=== PATIENT | male | born 1980 | race Caucasian/White ===

== ENCOUNTER 2021-09-11 09:04 | Outpatient (CLI) | payer OTHER, SELFPAY ==
[2021-09-11 09:55] LABS: Hematocrit 45.7 % (40-54); Mean Corpuscular Hgb 30.5 pg (27.0-32.0); Mean Platelet Vol. 10.7 fl (6.2-12.0); Platelet Count 292 K/mm3 (150-450); RBC Distribution Width CV 13.1 % (11.6-14.6); Red Blood Count 5.25 M/mm3 (4.6-6.2); White Blood Count 6.4 K/mm3 (4.4-11.0)
[2021-09-11 10:38] LABS: ALB/GLOB Ratio 1.2 RATIO (0.9-2.4); AST(SGOT) 34 U/L (15-37); Alanine Aminotransfer ALT/SGPT 79 U/L (16-61); Albumin, Serum 4.2 g/dL (3.2-5.0); Alkaline Phosphatase 72 U/L (45-117); Anion Gap 7 (5-15); BUN 11 mg/dL (7-18); BUN/Creat Ratio 11.4 RATIO (10-20); Calcium,Total 10.2 mg/dL (8.5-10.1); Chloride 103 mmol/L (98-107); Cholesterol 334 mg/dL (200); Creatinine, Serum 0.96 mg/dL (0.70-1.30); EST Glomerular Filtration Rate 91 mL/min (>60); Est Glom Filt Rate - Afr Amer 110 mL/min (>60); Globulin 3.5 g/dL (2.2-4.2); Glucose 100 mg/dL (74-106); High Density Lipoprotein 43 mg/dL; Potassium 4.6 mmol/L (3.5-5.1); Protein, Total 7.7 g/dL (6.4-8.2); Sodium Level 137 mmol/L (136-145); Triglycerides 1037 mg/dL
== END 2021-09-11 23:59 | disposition home or self-care (01) ==
LOC: MFPLAB 09:09
PROVIDERS: PCP Family Medicine; Referring Provider Family Medicine; Visit Provider Family Medicine
DX: R10.13 Epigastric pain (principal); Z13.220 Encounter for screening for lipoid disorders
CPT/HCPCS: 36415; 80053; 80061; 85027

== ENCOUNTER 2021-09-23 09:10 | Outpatient (CLI) | payer OTHER, SELFPAY ==
[2021-09-23 10:22] LABS: Cholesterol 255 mg/dL (200); High Density Lipoprotein 34 mg/dL; Thyroid Stim Hormone (TSH) 1.19 uIU/mL (0.358-3.74); Triglycerides 632 mg/dL
== END 2021-09-23 23:59 | disposition home or self-care (01) ==
LOC: LAB 09:12
PROVIDERS: PCP Family Medicine; Referring Provider Family Medicine; Visit Provider Family Medicine
DX: E78.5 Hyperlipidemia, unspecified (principal)
CPT/HCPCS: 36415; 80061; 84443

== ENCOUNTER → 2021-11-06 | Outpatient (CLI) | payer OTHER, SELFPAY ==
--- NOTE | 2021-11-06 07:45 | RAD_ITS ---
STUDY: X-RAY - ESOPHAGUS (BARIUM SWALLOW) WITH FLUOROSCOPY REASON FOR EXAM: Male, 41 years old. DYSPEPSIA TECHNIQUE: 20 view(s) of the esophagus were obtained following swallowing of barium. FLUOROSCOPY TIME (if supplied): (59 seconds) minutes/seconds COMPARISON: None. FINDINGS: There is no demonstrated esophageal foreign body. There is no demonstrated stricture or mucosal abnormality. Normal gastroesophageal junction, without a demonstrated hiatal hernia. The patient ingested a 12 mm tablet of barium without any difficulty. Normal visualized aortic arch and descending thoracic aorta. Normal visualized pulmonary parenchyma. Normal visualized osseous structures of the thorax. RAD/Esophagus Dual Contrast IMPRESSION: Normal plain film x-ray examination (barium swallow) of the esophagus. Electronically Signed: Filemon Shelby MD at 8:35 EDT ,
== END | disposition home or self-care (01) ==
PROVIDERS: PCP Family Medicine; Referring Provider Family Medicine; Visit Provider Family Medicine
DX: R10.13 Epigastric pain (principal)
CPT/HCPCS: 74221

== ENCOUNTER → 2022-01-15 | Outpatient (CLI) | payer OTHER, SELFPAY | END | disposition home or self-care (01) | LOC: PSN 14:09 | PROVIDERS: PCP Family Medicine; Visit Provider Internal Medicine Gastroenterology | DX: Z11.59 Encounter for screening for other viral diseases (principal) | CPT/HCPCS: 87426 ==

== ENCOUNTER → 2023-02-18 | Outpatient (CLI) | payer OTHER, SELFPAY ==
[2023-02-18 16:38] LABS: Anion Gap 7 (5-15); BUN 9 mg/dL (7-18); BUN/Creat Ratio 8.7 RATIO (10-20); Calcium,Total 9.4 mg/dL (8.5-10.1); Chloride 106 mmol/L (98-107); Cholesterol 249 mg/dL (200); Creatinine, Serum 1.03 mg/dL (0.70-1.30); EST Glomerular Filtration Rate 83 mL/min (>60); Est Glom Filt Rate - Afr Amer 101 mL/min (>60); Glucose 93 mg/dL (74-106); High Density Lipoprotein 38 mg/dL; Potassium 3.6 mmol/L (3.5-5.1); Sodium Level 139 mmol/L (136-145); Triglycerides 464 mg/dL
[2023-02-18 18:04] LABS: Absolute Lymphocyte Count 2.24 X10^3/uL (0.83-4.51); Absolute Neutrophil Count 3.7 X10^3/uL (2.0-7.7); Basophil# 0.05 X10^3/uL; Basophil% 0.7 % (0-1); Eosinophil# 0.15 X10^3/uL; Eosinophils% 2.2 % (0-5); Hemoglobin 14.9 g/dL (13.0-16.5); Lymphocyte # 2.24 X10^3/ul (0.83-4.51); Lymphocyte % 33.2 % (19-41); Mean Corp Hgb Conc 33.9 g/dL (32-36); Mean Corpuscular Hgb 29.5 pg (27.0-32.0); Mean Corpuscular Volume 87.1 fL (80-94); Mean Platelet Vol. 10.6 fl (6.2-12.0); Monocyte% 8.9 % (0-10); NRBC Flagged by Analyzer 0 % (0-5); Neutrophil # 3.69 X10^3/uL (2.7-7.7); Neutrophil % 54.9 % (47-70); Platelet Count 280 K/mm3 (150-450); RBC Distribution Width SD 41.3 fl (35.1-43.9); Red Blood Count 5.05 M/mm3 (4.6-6.2); White Blood Count 6.7 K/mm3 (4.4-11.0)
[2023-02-18 18:17] LABS: Erythrocyte Sedimentation Rate 17 mm/hr (0-20)
[2023-02-18 18:32] LABS: ALB/GLOB Ratio 1.1 RATIO (0.9-2.4); AST(SGOT) 31 U/L (15-37); Alanine Aminotransfer ALT/SGPT 67 U/L (16-61); Alkaline Phosphatase 52 U/L (45-117); Anion Gap 9 (5-15); BUN 12 mg/dL (7-18); BUN/Creat Ratio 12.6 RATIO (10-20); Calcium,Total 9.5 mg/dL (8.5-10.1); Chloride 106 mmol/L (98-107); Creatinine, Serum 0.95 mg/dL (0.70-1.30); EST Glomerular Filtration Rate 91 mL/min (>60); Est Glom Filt Rate - Afr Amer 111 mL/min (>60); Globulin 3.6 g/dL (2.2-4.2); Glucose 99 mg/dL (74-106); Potassium 3.6 mmol/L (3.5-5.1); Protein, Total 7.6 g/dL (6.4-8.2); Sodium Level 140 mmol/L (136-145)
[2023-02-20 14:09] LABS: HSV 1 IgG < 0.91 index (0.00-0.90); HSV 2 IgG 4.11 index (0.00-0.90)
== END | disposition home or self-care (01) ==
PROVIDERS: PCP Family Medicine; Referring Provider Family Medicine; Visit Provider Family Medicine
DX: R21 Rash and other nonspecific skin eruption (principal); E78.5 Hyperlipidemia, unspecified
CPT/HCPCS: 36415; 80048; 80053; 80061; 85025; 85652; 86695; 86696; 87255

== ENCOUNTER 2024-05-17 01:09 | Emergency (ER) | payer OTHER, SELFPAY ==
[2024-05-17 01:10] VITALS: BP 147/96; PULSE 101; RESP 20; TEMP 36.5; O2SAT 95; BMI 27.3
--- NOTE | 2024-05-17 01:12 | CT_ITS ---
INDICATION: Trauma EXAMINATION: CT BRAIN - CT Head or Brain W/O Contrast Injection TECHNIQUE: Multiple axial images were obtained of the head without intravenous contrast. The protocol utilizes one or more of the following dose reduction techniques: automated exposure control, adjustment of mA and/or kV according to patient size,and/or use of iterative reconstruction technique. IV Contrast dosage and agent: None. RADIATION DOSAGE (If Supplied By Facility): CTDIvol = ( 44.99 ) mGy, DLP = ( 863.60 ) mGycm COMPARISON: No relevant prior comparison study available FINDINGS: BRAIN PARENCHYMA: No intra- or extra-axial hemorrhage. No evidence of acute infarct. No intracranial mass or mass effect. There is preservation of the garcia/white matter interface. Posterior fossa structures are unremarkable. CSF SPACES: Appropriate for age. No hydrocephalus. Basal cisterns are patent. CALVARIUM, SKULL BASE, PARANASAL SINUSES AND MASTOID AIR CELLS: Clear. No discrete lytic or blastic abnormalities. ORBITS: Both globes, extraocular muscles, optic nerves and retrobulbar fat appear unremarkable. ASPECTS Score for Acute Strokes: 10 CT/Brain/Head without Contrast IMPRESSION: Negative Brain CT without contrast. Electronically Signed: José Peck MD at 2:08 EST ,
--- NOTE | 2024-05-17 01:12 | CT_ITS ---
INDICATION: Trauma EXAMINATION: CT CERVICAL SPINE - CT Spine Cervical W/O Contrast Injection TECHNIQUE: Helically acquired images were obtained of the cervical spine. 2D reformatted images were reviewed. The protocol utilizes one or more of the following dose reduction techniques: automated exposure control, adjustment of mA and/or kV according to patient size,and/or use of iterative reconstruction technique. IV Contrast dosage and agent: None. RADIATION DOSAGE (If Supplied By Facility): CTDIvol = ( 23.89 ) mGy, DLP = ( 508.54 ) mGycm COMPARISON: FINDINGS: VERTEBRAE: No fracture or traumatic subluxation. No discrete lytic or blastic abnormality. Normal alignment. Normal craniocervical junction and cervicothoracic junction. DISCS and SPINAL CANAL: Disc heights are preserved. No critical stenosis. NECK SOFT TISSUES: No prevertebral soft tissue swelling. There is no cervical adenopathy. LUNG APICES: Clear. CT/Spine Cervical without Contras IMPRESSION: No evidence of acute cervical spinal fracture or spondylolisthesis. Electronically Signed: José Peck MD at 2:05 EST ,
--- NOTE | 2024-05-17 01:16 | EDS_ITS ---
HPI History of Present Illness Chief Complaint: Fall Detail of Chief Complaint: Fell striking his head against concrete Informant: patient and EMS Onset/Context/Timing Onset: Today and Hours Mechanism/Context: Blunt Injury and Fall Location of pain/injuries: - (Laceration left side of his scalp, above right brow and nose) Quality of Pain: - (None) Current Severity: Gone Maximum Severity: Patient inebriated Worsened by: Not applicable Relieved by: Not applicable Associated Symptoms Associated Symptoms: Positive for Inability to ambulate; Negative for Parasthesias, Weakness, Loss of function, Loss of consciousness or Amnesia Narrative Narrative: Patient is a 44-year-old male. He was at a bar. He admits to drinking heavily. He apparently fell onto the concrete. He sustained a laceration left scalp region, forehead on the right, and 2 lacerations of his nose. Blood is noted in the right vestibule. He denies his teeth not lining up. He denies any pain. He denies cardiac symptoms. He denies respiratory symptoms. Bystanders state after he hit his head he had a change in his behavior and vomited. Presently patient is friendly. He is very talkative. His speech is slurred. He did arrive without a c-collar. 1 was placed. Tetanus Immunization: Unknown Prior similar symptoms: No Recent Illness/Hospitalization: No PFSH PFSH Medical History no medical history no medical history Home Medications ?Medication ?Instructions ?Recorded ?Last Taken ?Type NK 05/17/24 Unknown History Allergy/AdvReac Type Severity Reaction Status Date / Time No Known Allergies Allergy Verified 05/17/24 01:11 Surgical History no surgical history Social History (Updated 05/17/24 @ 01:[address] Aram Adam MD) household members: spouse Smoking Status: Never smoker alcohol intake: current ROS ROS ED Review of Systems ROS Unobtainable: due to mental status Eyes Eyes: Denies blurry vision or change in vision ENT ENT ED: Denies ear pain, rhinorrhea or sore throat Cardiovascular Cardiovascular: Denies chest pain or palpitations Respiratory/Chest Respiratory/Chest: Denies cough or dyspnea Gastrointestinal Gastrointestinal: Reports nausea and vomiting; Denies abdominal pain Musculoskeletal Musculoskeletal: Denies back pain or neck pain Integumentary Reports other Details: Multiple lacerations to face and head. Neurologic Neurologic: Denies headache(s) or paresthesias Hematologic/Lymphatic Hematologic/Lymphatic: Denies easy bleeding or easy bruising EXAM Physical Exam Const Vital Signs: 05/17/24 01:10 05/17/24 01:37 05/17/24 01:45 Temperature 97.7 F L Temperature Source Oral Pulse Rate 101 H 95 106 H Respiratory Rate 20 H 21 H 22 H Blood Pressure 147/96 H Blood Pressure Mean 113 Pulse Ox 95 94 Oxygen Delivery Method 05/17/24 02:04 05/17/24 03:00 Temperature Temperature Source Pulse Rate 101 H 79 Respiratory Rate 18 18 Blood Pressure Blood Pressure Mean Pulse Ox 93 98 Oxygen Delivery Method Room Air Positive well nourished and well developed Constitutional Narrative: Patient with slurred speech. He is speaking quickly. He is presently friendly. General Appearance ED: well developed and NAD HEENT Reports TM's clear HEENT Narrative: Scalp laceration left scalp, right forehead and 2 involving the nose. There is no septal deviation or hematoma. There is no clinical findings of basilar skull fracture and no findings of depressed skull fracture. trauma and tenderness Nose: Negative for septum abnormal Tympanic Membrane ED: Yes TM's clear Eyes PERRL and EOMs intact bilaterally Neck full ROM General: Negative for tenderness Chest Wall inspection of chest normal and palpation of chest normal Resp normal respiratory effort and clear to auscultation bilaterally Cardio regular rhythm, S1 normal heart sound, S2 normal heart sound and no murmurs Rate: tachycardic GI normal to inspection, nondistended, normoactive bowel sounds, non-tender, non- distended and no masses Back/Spine normal to inspection and no thoracic nor lumbar tenderness Extremity normal to inspection and full ROM General Extremety ED: Negative for deformity General Extremity: Negative for deformity Neuro oriented x3, CN's II-XII intact bilaterally and moves all extremities Sergio Coma Scale: document GCS findings Spontaneous Obeys Commands Oriented 15 Sensorium / Orientation: alert Plantar Reflex: Downgoing: bilateral Psych Psych Narrative: Clinically patient is inebriated. Skin no rashes or lesions noted, No no wounds, skin turgor normal and no jaundice PROC Procedures Other Procedures Procedure(s): Repair of laceration left side of the scalp, right side of forehead, bridge of nose and lateral and nose inferior left orbital region. All wounds were anesthetized with lidocaine by local infiltration. A total of 8 cc was used. The scalp and forehead laceration was anesthetized initially. After those were close the nose and facial laceration was closed. The forehead laceration is irregular and 6 mm in length. The scalp laceration is 2 cm in length. The laceration over the nose was sutured because of persistent bleeding even though it was only 4 mm in length. There is also a 1.5 cm laceration lateral of the nose inferior the left orbit. There is no palpable defect with palpation. Patient had no entrapment. There is no diplopia. There is no subconjunctival hemorrhage. Because of the amount of swelling of his nose visualization of the right and left vestibule reveals no evidence of septal deviation or septal hematoma. The wounds were irrigated with normal saline. The wounds were all closed using 6-0 interrupted sutures placed. The laceration over the nose required 1. The laceration inferior to the left orbit required 3. The forehead laceration required 3 stitches and the scalp laceration required 6 stitches. MDM MDM MDM Narrative Medical decision making narrative: With history of head trauma, change in behavior nausea vomiting and the fact that he is inebriated which limits his exam a CT of the head and neck was obtained per the [place] CT head rule and the fact that he cannot be cleared per [facility] criteria. He will require suture of the several of his lacerations. Alcohol level was obtained as well as electrolyte panel and CBC. CBC was obtained to assess platelet count. He is not on antithrombotic or anticoagulant. Lab Data Attestation: I reviewed the patient's lab results. Lab results narrative: CBC is unremarkable. Labs: Laboratory Results - last 24 hr 05/17/24 01:19 WBC 6.4 RBC 5.50 Hgb 16.5 Hct 47.3 MCV 86.0 MCH 30.0 MCHC 34.9 RDW Std Deviation 41.2 RDW Coeff of Eliana 13.2 Plt Count 370 MPV 9.9 Immature Gran % (Auto) 0.300 Neut % (Auto) 42.5 L Lymph % (Auto) 48.5 H [facility] % (Auto) 5.9 Eos % (Auto) 1.7 Baso % (Auto) 1.1 H Absolute Neuts (auto) 2.7 Absolute Lymphs (auto) 3.10 Nucleated RBC % 0 Sodium 137 Potassium 3.7 Chloride 102 Carbon Dioxide 25.0 Anion Gap 10 BUN 8 Creatinine 1.21 Estim Creat Clear Calc 87.13 Est GFR (MDRD) Af Amer 83 Est GFR (MDRD) Non-Af 69 BUN/Creatinine Ratio 6.6 L Glucose 146 H Calcium 9.4 Ethyl Alcohol 279.0 Radiography Diagnostic Testing: Clinical Impression(s) from Imaging Studies Brain CT 05/17/24 01:12 IMPRESSION: Negative Brain CT without contrast. Electronically Signed: José Peck MD at 2:08 EST , Cervical Spine CT 05/17/24 01:12 IMPRESSION: No evidence of acute cervical spinal fracture or spondylolisthesis. Electronically Signed: José Peck MD at 2:05 EST , CT of the head without contrast and CT of the cervical spine were reviewed by sc at 0143. There is no evidence of epidural hematoma, subdural hematoma, traumatic subarachnoid hemorrhage or intracranial bleed. There is no fluid noted in the sinuses. There is no fracture of the skull noted. The cervical spine reveals no subluxation, dislocation or fracture. There is no prevertebral soft tissue swelling noted either. Awaiting formal read by radiologist. Differential Diagnosis Differential Diagnosis: Differential diagnosis is concussion, intoxication, subdural hematoma, epidural hematoma, intraparenchymal contusion and traumatic subarachnoid hemorrhage. Also need to evaluate for cervical spine injury. Discharge Plan Triage Chief Complaint: Fall ED Provider: Aram Adam Dx/Rx/DC Orders Clinical Impression: CHI (closed head injury), Acute cervical myofascial strain, Acute alcoholic intoxication in alcoholism (blood level 0.08-0.29), Laceration of scalp, Laceration of skin of forehead, Laceration of nose, Laceration of skin of face, Elevated blood-pressure reading without diagnosis of hypertension Instructions: ED Head Injury (Adult), ED Hypertension, To Be Confirmed, ED Laceration, All Closures, ED Laceration Minimize Scars Prescriptions: No Action NK Primary Care Provider: Donovan Hardy Referrals: Donovan Hardy MD [Primary Care Provider] - 5 Days for suture removal Activity Restrictions/Additional Instructions: 1. Keep wounds clean and dry for the next 48 to 72 hours. 2. Apply bacitracin ointment 2-3 times a day 3. Your blood pressure readings have been elevated. You should have this rechecked in 1 to 2 weeks Print Language: Arabic Disposition Disposition: Home, Self Care
[2024-05-17] MEDS: Diphth,Pertuss(Acell),Tet Vac 0.5 ML Vial IM (01:27)
[2024-05-17] MEDS: Lidocaine 1% (20 ml mdv) 20 ML Vial INFILT (01:27)
[2024-05-17 01:34] LABS: Absolute Neutrophil Count 2.7 X10^3/uL (2.0-7.7); Basophil# 0.07 X10^3/uL; Basophil% 1.1 % (0-1); Eosinophil# 0.11 X10^3/uL; Eosinophils% 1.7 % (0-5); Hematocrit 47.3 % (40-54); Hemoglobin 16.5 g/dL (13.0-16.5); Lymphocyte % 48.5 % (19-41); Mean Corp Hgb Conc 34.9 g/dL (32-36); Mean Platelet Vol. 9.9 fl (6.2-12.0); Monocyte# 0.38 X10^3/uL; Monocyte% 5.9 % (0-10); NRBC Flagged by Analyzer 0 % (0-5); Neutrophil # 2.71 X10^3/uL (2.7-7.7); Neutrophil % 42.5 % (47-70); Platelet Count 370 K/mm3 (150-450); RBC Distribution Width CV 13.2 % (11.6-14.6); RBC Distribution Width SD 41.2 fl (35.1-43.9); White Blood Count 6.4 K/mm3 (4.4-11.0)
[2024-05-17 01:37] VITALS: PULSE 95; RESP 21; O2SAT 94
[2024-05-17 01:45] VITALS: PULSE 106; RESP 22
[2024-05-17 01:48] LABS: Anion Gap 10 (5-15); BUN 8 mg/dL (7-18); BUN/Creat Ratio 6.6 RATIO (10-20); Calcium,Total 9.4 mg/dL (8.5-10.1); Chloride 102 mmol/L (98-107); Creatinine, Serum 1.21 mg/dL (0.70-1.30); EST Glomerular Filtration Rate 69 mL/min (>60); Est Glom Filt Rate - Afr Amer 83 mL/min (>60); Estimated Creatinine Clearance 87.13 ml/min; Glucose 146 mg/dL (74-106); Potassium 3.7 mmol/L (3.5-5.1); Sodium Level 137 mmol/L (136-145)
[2024-05-17 02:04] VITALS: PULSE 101; RESP 18; O2SAT 93
[2024-05-17 03:00] VITALS: PULSE 79; RESP 18; O2SAT 98
--- NOTE | 2024-05-17 03:09 | ED.RN ---
PT KEEPS PULLING OFF THE C-COLLAR AND MONITOR,BP,PULSE OX.
--- NOTE | 2024-05-17 03:28 | ED.RN ---
PT REMOVED BP CUFF,PULSE OX,HEART MONITOR AND C-COLLAR.PT'S STATED THAT THE PT NEEDED TO USE THE RESTROOM. PT GIVEN A URINAL,BUT REFUSED TO USE IT.PT SAID,I'M FINE. PT ADVISED THAT THIS NURSE DOESN'T FEEL COMFORTABLE HIM WALKING TO THE BATHROOM.PT STATED,i'M GOOD.uRINAL LEFT AT THE BEDSIDE WITH INSTRUCTIONS.
[2024-05-17 05:23] VITALS: BP 130/86; PULSE 87; RESP 18; TEMP 36.7; O2SAT 98
== END 2024-05-17 05:24 | disposition home or self-care (01) ==
PROVIDERS: Emergency Provider Emergency Medicine; PCP Family Medicine; Visit Provider Emergency Medicine
DX: S09.90XA Unspecified injury of head, initial encounter (principal); S01.01XA Laceration without foreign body of scalp, initial encounter; S16.1XXA Strain of muscle, fascia and tendon at neck level, initial encounter; R26.2 Difficulty in walking, not elsewhere classified; R47.81 Slurred speech; S01.81XA Laceration without foreign body of other part of head, initial encounter; R03.0 Elevated blood-pressure reading, without diagnosis of hypertension; S01.21XA Laceration without foreign body of nose, initial encounter; F10.129 Alcohol abuse with intoxication, unspecified; W19.XXXA Unspecified fall, initial encounter; Y90.0 Blood alcohol level of less than 20 mg/100 ml; Z23 Encounter for immunization
CPT/HCPCS: 12001; 12011; 70450; 72125; 80048; 82077; 85025; 90471; 90715; 99285; A4216